=== PATIENT | female | born 1955 | race Caucasian/White ===

== ENCOUNTER 2016-03-22 12:36 | Day surgery (SDC) | payer OTHER ==
[~2016-03-22] VITALS: Ht 162.6 cm; Wt 62.5 kg
[2016-03-22 13:05] VITALS: Ht 162.6 cm; Wt 62.5 kg
[2016-03-22] MEDS ORDERED: LEVOTHYROXINE (13:11)
[2016-03-22 13:20] VITALS: BP 118/75; PULSE 70; RESP 18
[2016-03-22] MEDS ORDERED: FENTAnyl 50 MCG/ML VIAL ONE (13:47)
[2016-03-22] MEDS ORDERED: MIDAZOLAM 1 MG/ML 2 ML INJ ONE ×2 (13:47)
[2016-03-22 14:09] VITALS: BP 118/72; PULSE 77; RESP 16
--- NOTE | 2016-03-22 14:26 | GILP ---
DATE OF PROCEDURE: 03/22/2016 NAME OF PROCEDURE: Colonoscopy. SURGEON: Marshall Almendarez MD PREOPERATIVE DIAGNOSIS: Screening colonoscopy. POSTOPERATIVE DIAGNOSES: 1. Colonoscopy all the way to the cecum. 2. Diverticulosis of the colon. 3. Internal hemorrhoids. 4. No colon neoplasm was identified. INDICATION FOR THE PROCEDURE: Ms. Nilsa Lane is a 61-year-old female patient who was scheduled f or screening colonoscopy. The procedure and possible complications are well explained to the patient. The patient understood and consented to the procedure. DESCRIPTION OF PROCEDURE: Under the influence of fentanyl and Versed, the colonoscope was carefully introduced in the rectum and under direct vision, it was advanced all the way to the cecum. FINDINGS: The patient had diverticulosis of the colon. She also had internal hemorrhoids. No colo n neoplasm was identified. She tolerated the procedure very well and there was no complication from the procedure. At the end of the procedures, she was awake with stable vital signs and she was discharged home to the care of her family. IMPRESSION: Please see postoperative diagnoses. PLAN: Next screening colonoscopy in 10 years. Dictated By: MARSHALL MEJIA/ANCELMO Conf#: [id number] DID#: [id number]
== END 2016-03-22 15:42 | disposition home or self-care (01) ==
LOC: GIL 12:36
PROVIDERS: ATTEND Internal Medicine Gastroenterology
DX: Z12.11 Encounter for screening for malignant neoplasm of colon (principal); K57.90 Diverticulosis of intestine, part unspecified, without perforation or abscess without bleeding; K64.8 Other hemorrhoids
CPT/HCPCS: 45378; J2250; J3010; Z7610